=== PATIENT | male | born 1960 | race Hispanic/Latino ===

== ENCOUNTER 2020-11-15 23:11 | Inpatient (IN) | payer BC ==
[2020-11-16 01:42] VITALS: BMI 34.8
[2020-11-16] MEDS ORDERED: Ondansetron PF 4 MG/2 ML Vial IVP PRN (02:34)
[2020-11-16] MEDS ORDERED: Promethazine HCl 12.5 MG in Sodium Chloride 0.9% 50 ML IVPB PRN (02:34)
[2020-11-16] MEDS ORDERED: Labetalol HCl 100 MG/20 ML VIAL SLOW IVP PRN (02:34)
[2020-11-16] MEDS ORDERED: hydrALAZINE 20 MG/ML VIAL SLOW IVP PRN (02:34)
[2020-11-16] MEDS ORDERED: cloNIDine 0.1 MG TAB PO PRN (02:34)
--- NOTE | 2020-11-16 02:44 | PDOC.HHP ---
Hospitalist HPI shortness of breath History of Present Illness: patient is a 60 year old male with PMH HTN, DM who presents as transfer for covid and hypoxia. patient diagnosed with covid on 11/08 and was doing well until today, he developed shortness of breath, in ED satting 88% on RA required 2OL by [place] to make sats over 90, given steroids and antibiotics and transferred here for further workup and care. Allergies/Adverse Reactions: Allergy/AdvReac Type Severity Reaction Status Date / Time No Known Allergies Allergy Unverified 11/16/20 01:31 Home Medications: Medication Instructions Recorded Confirmed Type Aspirin 81 mg PO DAILY 11/16/20 11/16/20 History Atorvastatin Calcium 10 mg PO DAILY 11/16/20 11/16/20 History Lisinopril 10 mg PO DAILY 11/16/20 11/16/20 History metFORMIN [Glucophage] 500 mg PO DAILY 11/16/20 11/16/20 History Past History: PMHx: DM, HTN, HLD PSHx: colonoscopy FHx: reviewed and no significant FH to this care Social: Patient drinks socially rarely Patient denies drug use Patient has no smoking history Lives at home with family. Hospitalist HPI ROS Constitutional: denies: fever, chills, sweats, weakness, malaise, other Eyes: denies: pain, vision change, conjunctivae inflammation, eyelid inflammation, redness, other ENT: denies: ear pain, ear discharge, nose pain, nose discharge, nose conge stion, mouth pain, mouth swelling, throat pain, throat swelling, other Respiratory: reports: shortness of breath. denies: cough, dry, hemoptysis, SOB with excertion, pleuritic pain, sputum, wheezing, other Cardiovascular: denies: chest pain, palpitations, orthopnea, paroxysmal noc. dyspnea, edema, light headedness, other Gastrointestinal: denies: nausea, vomiting, abdominal pain, diarrhea, constipation, melena, hematochezia, other Genitourinary: denies: dysuria, frequency, incontinence, hematuria, retention, other Musculoskeletal: denies: neck pain, shoulder pain, arm pain, back pain, hand pain, leg pain, foot pain, other Skin: denies: rash, lesions, zulma, bruising, other Neurological: denies: weakness, numbness, incoordination, change in speech, confusion, seizures, other All other systems reviewed; all pertinent +/- noted in HPI/Subj Hospitalist Exam Vitals: Vital Signs (12 hours) Temp Pulse Resp Pulse Ox 11/16/20 01:52 95 11/16/20 01:48 95 11/16/20 01:29 97.2 F L 65 18 95 Weight Weight 209 lb 7.04 oz General Appearance: NAD, awake alert Eye: PERRL, anicteric sclera ENT: normocephalic atraumatic, no oropharyngeal lesions, moist mucosa Neck: supple, symmetric, no JVD, no thyromegaly, no lymphadenopathy, no carotid bruit Heart: RRR, no murmur, no gallops, no rubs, normal peripheral pulses Respiratory: CTAB, no wheezes, no rales, no ronchi, normal chest expansion, no tachypnea, normal percussion Gastrointestinal: soft, non-tender, non-distended, normal bowel sounds, no palpable masses, no hepatomegaly, no splenomegaly, no bruit Extremities: no cyanosis, no clubbing, no edema Skin: normal turgor, no lesions, no rashes Neurological: cranial nerve grossly intact, normal sensation to touch, no weakness, no focal deficits, no new deficit Musculoskeletal: normal tone, normal strength, no muscle wasting Psychiatric: normal affect, normal behavior, A&O x 3 Hospitalist Results Lab results: Laboratory Last Values POC Glucose 187 mg/dL (70-100) H 11/16/20 01:34 Additional comment: ED documents from here and kelly reviewed, and labs and imaging reports Hospitalist H&P A/P Plan: patient is a 60 year old male with PMH HTN, DM who presents as transfer for covid and hypoxia. patient diagnosed with covid on 11/08 and was doing well until today, he developed shortness of breath, in ED satting 88% on RA required 2OL by [place] to make sats over 90, given steroids and antibiotics and transferred here for further workup and care. # covid 19 pneumonia # hypoxia - admit to floor - continue on O2, monitor for worsening - antibiotics, vitamins, pepcid, lovenox, steroids # HTN - continue home meds and PRN meds for breakthrough # DM w/ hyperglycemia - steroids playing a role in out of control numbers, continue SSI and hold PO DM meds DVT/GI ppx
[2020-11-16] MEDS ORDERED: Electrolyte Replacement Protocol 1 EACH FS SCH (02:45)
[2020-11-16] MEDS ORDERED: Dextrose 5% in Water 1,000 ML IV PRN (02:48)
[2020-11-16] MEDS ORDERED: Dextrose 50% Abboject 50 ML SYRINGE SLOW IVP PRN (02:48)
[2020-11-16] MEDS: HumaLOG 300 UNITS/3 ML VIAL SC PRN (05:43)
[2020-11-16] MEDS ORDERED: Lisinopril 10 MG TAB PO SCH (09:00)
[2020-11-16] MEDS: Zinc Sulfate 220 MG CAP PO SCH (09:10)
[2020-11-16] MEDS: Atorvastatin Calcium 10 MG TAB PO SCH (09:10)
[2020-11-16] MEDS: Famotidine 20 MG TAB PO SCH ×2 (09:10→20:14)
[2020-11-16] MEDS: Aspirin Chewable 81 MG TAB PO SCH (09:10)
[2020-11-16] MEDS: Ascorbic Acid 500 mg Chewable Tablet PO SCH (09:10)
[2020-11-16] MEDS: Cholecalciferol 1,000 UNITS (25 MCG) TAB PO SCH (09:10)
[2020-11-16] MEDS ORDERED: HumaLOG 300 UNITS/3 ML VIAL SC PRN (12:51)
[2020-11-16] MEDS ORDERED: Albuterol 200 PUFF (6.7GM INHALER) INH PRN (12:54)
[2020-11-16] MEDS ORDERED: REMDESIVIR (EUA) 200 MG in Sodium Chloride 0.9% 250 ML 210 ML IV SCH (15:00)
[2020-11-16] MEDS: Albuterol 200 PUFF (6.7GM INHALER) INH SCH ×3 (17:37→22:30)
--- NOTE | 2020-11-16 20:07 | CON ---
DATE OF CONSULTATION: 11/16/2020 REASON FOR CONSULT: COVID-19. HISTORY OF PRESENT ILLNESS: A 60-year-old, looks like first admission to this hospital who has a history of obesity, type 2 diabetes, hyperlipidemia, hypertension, and has been positive and sick for about 7 days before admission. He initially did well but then 2 days before admission, his saturations dropped to the 80s, so he was brought in. He is currently receiving Decadron, azithromycin, Rocephin, remdesivir. He was sitting by the window, saturating at around 90%, and he is little bit tachypneic at rest, coughing intermittently, typical COVID symptoms. He is oriented follows commands. Sometimes his speech is a little bit halting because of breathlessness. He denies headaches. No shortness of breath. Little bit of loss of sense of smell. No sore throat, odynophagia, or dysphagia. No chest pain. No abdominal pain or diarrhea. No genitourinary symptoms. No joint symptoms. PAST MEDICAL HISTORY: Obesity, diabetes type 2, hypertension. FAMILY HISTORY: Noncontributory. ALLERGIES: NONE. MEDICATIONS: 1. Remdesivir. 2. Decadron. 3. Azithromycin. 4. Rocephin. 5. Some other p.r.n. medications. PHYSICAL EXAMINATION: VITAL SIGNS: The temperature is normal, BP 117/62, heart rate 68, respirations 17, O2 saturation 93% to 96%. He will desaturate easily down to 85 to 87 upon the slightest exercise. When he is lying on his left lateral decubitus, his best sats are around 91 to 92. In the recumbent position, they go up to 95, and in the right lateral decubitus, they go up to 98% to 100%. HEENT: His ocular movements are conjugate. Oral cavity normal. LUNGS: With a few scattered inspiratory crackles up to a third of right and left hemithorax. No wheezing. HEART: S1, S2. Regular rate. No S3 or S4. ABDOMEN: Soft, not distended or tender. No ascites. No bladder distention. No edema. EXTREMITIES: No joint inflammatory activity. Moves all extremities equally. NEUROLOGIC: Cognitive function appears to be intact. LABORATORY DATA: White cell count 11.8, hemoglobin 13, platelets 216 with 90% neutrophils. D-dimer 1.68. Creatinine 1.15, glucose 126. Liver profile normal. SARS-CoV2 was positive on the . ASSESSMENT: Type 2 diabetes, hypertension and moderate to severe SARS-CoV2 pneumonia. Continue remdesivir, Decadron. Discontinue azithromycin and Rocephin. Continue O2 supplementation. He is right now at 5 L/minute and hopefully he will turn around. Measure CRP and D-dimer every other day and basic metabolic panel. Liver functions every other day. Job ID: [id number]
[2020-11-16] MEDS: Enoxaparin Sodium 40 MG/0.4 ML SYRINGE SC SCH (20:14)
[2020-11-16] MEDS: Dexamethasone 4 mg/ml Vial SLOW IVP SCH (20:14)
[2020-11-16] MEDS ORDERED: Enoxaparin Sodium 40 MG/0.4 ML SYRINGE SC SCH (21:00)
[2020-11-16] MEDS ORDERED: Azithromycin 500 MG in Sodium Chloride 0.9% 250 ML 250 ML IVPB SCH (21:00)
[2020-11-16] MEDS ORDERED: cefTRIAXone\\ROCEPHIN 1 GM in Sodium Chloride 0.9% 100 ML IVPB SCH (22:00)
[2020-11-17] MEDS: Albuterol 200 PUFF (6.7GM INHALER) INH SCH ×6 (02:30→22:50)
[2020-11-17 07:51] LABS: ALT (SGPT) 16 U/L (8-55); AST (SGOT) 23 U/L (5-34); Albumin 3.4 g/dL (3.5-5.0); Alkaline Phosphatase 95 U/L (40-110); Anion Gap 13 mmol/L (10-20); BUN (Urea Nitrogen) 23 mg/dL (8.4-25.7); Bilirubin, Direct 0.2 mg/dL (0.1-0.3); Bilirubin, Total 0.5 mg/dL (0.2-1.2); Calc. Creatinine Clearance 114 mL/min (70-130); Calcium 8.9 mg/dL (7.8-10.44); Carbon Dioxide 22 mmol/L (22-29); Chloride 107 mmol/L (98-107); Glucose 166 mg/dL (70-105); Magnesium 2.3 mg/dL (1.6-2.6); Potassium 4.1 mmol/L (3.5-5.1); Protein, Total 6.4 g/dL (6.0-8.3); Sodium 138 mmol/L (136-145)
[2020-11-17 08:05] LABS: Band 4 % (5-11); Hemoglobin 12.4 g/dL (14.0-18.0); Lymphocytes 8 % (21-51); MDiff Complete? YES; Mean Corpuscular HGB CONC 32.8 g/dL (32.0-36.0); Mean Corpuscular Hemoglobin 28.7 pg (27.0-31.0); Mean Corpuscular Volume 87.6 fL (78.0-98.0); Mean Platelet Volume 8.5 fL (7.4-10.4); Monocytes 1 % (0-10); Neutrophil 87 % (42-75); Platelet Count 299 thou/uL (130-400); RBC Distribution Width 11.9 % (11.5-14.5); White Blood Cell (WBC) Count 17.3 thou/uL (4.8-10.8)
[2020-11-17] MEDS: Enoxaparin Sodium 40 MG/0.4 ML SYRINGE SC SCH ×2 (09:08→20:39)
[2020-11-17] MEDS: Multivit, Therapeutic 1 TAB PO SCH (09:08)
[2020-11-17] MEDS: Ascorbic Acid 500 mg Chewable Tablet PO SCH (09:08)
[2020-11-17] MEDS: Atorvastatin Calcium 10 MG TAB PO SCH (09:08)
[2020-11-17] MEDS: Cholecalciferol 1,000 UNITS (25 MCG) TAB PO SCH (09:08)
[2020-11-17] MEDS: Aspirin Chewable 81 MG TAB PO SCH (09:08)
[2020-11-17] MEDS: Zinc Sulfate 220 MG CAP PO SCH (09:08)
[2020-11-17] MEDS: Famotidine 20 MG TAB PO SCH (09:08)
[2020-11-17] MEDS: HumaLOG 300 UNITS/3 ML VIAL SC PRN (12:09)
[2020-11-17] MEDS: REMDESIVIR (EUA) 100 MG in Sodium Chloride 0.9% 250 ML 230 ML IV SCH (17:22)
--- NOTE | 2020-11-17 20:38 | PDOC.HOSPP ---
- Subjective Encounter Date: 11/17/20 Encounter Time: 14:00 Subjective: Patient seen and examined for respiratory failure due to COVID 19 pneumonia. Short of breath on [id number] exertion. Denies any fever or chills. - Objective Vital Signs & Weight: Vital Signs (12 hours) Temp Pulse Resp BP Pulse Ox 11/17/20 20:00 99.4 F 84 20 130/69 95 11/17/20 15:39 98.3 F 68 17 150/70 H 95 11/17/20 11:35 98.6 F 80 16 133/64 97 Weight Weight 209 lb 7.04 oz Result Diagrams: 11/17/20 07:17 11/17/20 07:17 Additional Labs: Accuchecks 11/17/20 11/17/20 11/17/20 15:40 11:37 05:16 POC Glucose 110 H 226 H 158 H 11/16/20 20:29 POC Glucose 209 H Abnormal Lab Results - Last 48 hrs 11/17/20 07:17: Albumin 3.4 L 11/17/20 07:17: WBC 17.3 H, RBC 4.30 L, Hgb 12.4 L, Hct 37.7 L, Neutrophils % (Manual) 87 H, Band Neuts % (Manual) 4 L, Lymphocytes % (Manual) 8 L 11/17/20 07:17: C-Reactive Protein 8.40 H 11/17/20 07:17: Ferritin 923.03 H 11/17/20 07:17: D-Dimer 1.17 H Radiology Reviewed by me: Yes (CTA chest - pneumonia) Hospitalist ROS - Review of Systems Cardiovascular: denies: chest pain, palpitations, orthopnea, paroxysmal noc. dyspnea, edema, light headedness, other Gastrointestinal: denies: nausea, vomiting, abdominal pain, diarrhea, constipation, melena, hematochezia, other - Medication Medications: Active Medications Generic Name Dose Route Start Last Admin Trade Name Freq PRN Reason Stop Dose Admin Albuterol Sulfate 2 puff 11/16/20 14:30 11/17/20 17:22 Albuterol 200 Puff (6.7gm Inhaler) INH 2 puff [id number] SUZANNA Administration Ascorbic Acid 500 mg 11/16/20 09:00 11/17/20 09:08 Ascorbic Acid 500 Mg Chewable Tablet PO 500 mg DAILY SUZANNA Administration Aspirin 81 mg 11/16/20 09:00 11/17/20 09:08 Aspirin Chewable 81 Mg Tab PO 81 mg DAILY SUZANNA Administration Atorvastatin Calcium 10 mg 11/16/20 09:00 11/17/20 09:08 Atorvastatin Calcium 10 Mg Tab PO 10 mg DAILY SUZANNA Administration Cholecalciferol 2,000 units 11/16/20 09:00 11/17/20 09:08 Cholecalciferol 1,000 Units (25 Mcg) Tab PO 2,000 units DAILY SUZANNA Administration Dexamethasone 6 mg 11/16/20 21:00 11/16/20 20:14 Dexamethasone 4 Mg/Ml Vial SLOW IVP 6 mg HS SUZANNA Administration Enoxaparin Sodium 40 mg 11/16/20 21:00 11/17/20 09:08 Enoxaparin Sodium 40 Mg/0.4 Ml Syringe SC 40 mg 0900,2100 SUZANNA Administration Remdesivir 100 mg/ Sodium 250 mls @ 250 mls/hr 11/17/20 16:00 11/17/20 17:22 Chloride IV 11/20/20 16:59 250 mls 1600 SUZANNA Administration Insulin Human Lispro 0 units 11/16/20 02:48 11/17/20 12:09 Humalog 300 Units/3 Ml Vial SC 3 units .MILD SLIDING SCALE PRN Administration Mild Correctional Scale Insulin Human Lispro 0 units 11/16/20 12:51 11/16/20 20:56 Humalog 300 Units/3 Ml Vial SC 2 unit .BEDTIME SLIDING SC PRN Administration Bedtime Correctional Scale Multivitamins 1 tab 11/17/20 09:00 11/17/20 09:08 Multivit, Therapeutic 1 Tab PO 1 tab DAILY SUZANNA Administration Zinc Sulfate 220 mg 11/16/20 09:00 11/17/20 09:08 Zinc Sulfate 220 Mg Cap PO 220 mg DAILY SUZANNA Administration Hospitalist Exam Vitals: Vital Signs (12 hours) Temp Pulse Resp BP Pulse Ox 11/17/20 20:00 99.4 F 84 20 130/69 95 11/17/20 15:39 98.3 F 68 17 150/70 H 95 11/17/20 11:35 98.6 F 80 16 133/64 97 Weight Weight 209 lb 7.04 oz General Appearance: awake alert Neck: supple, no JVD Heart: RRR, no gallops, no rubs, normal peripheral pulses Respiratory: normal chest expansion, rales, rhonchi, tachypneic Gastrointestinal: soft, normal bowel sounds, no guarding, no rigidity Extremities: no cyanosis, no clubbing Neurological: no new deficit Musculoskeletal: generalized weakness Psychiatric: normal affect, A&O x 3 Hosp A/P (1) Acute respiratory failure with hypoxia Code(s): J96.01 - ACUTE RESPIRATORY FAILURE WITH HYPOXIA Status: Acute (2) Pneumonia due to COVID-19 virus Code(s): U07.1 - COVID-19; J12.82 - PNEUMONIA DUE TO CORONAVIRUS DISEASE 2019 Status: Acute (3) Severe sepsis Code(s): A41.9 - SEPSIS, UNSPECIFIED ORGANISM; R65.20 - SEVERE SEPSIS WITHOUT SEPTIC SHOCK Status: Suspected (4) Diabetes mellitus, type II Status: Chronic Qualifiers: Chronic kidney disease stage: stage 2 (mild) (5) Obesity (BMI 30-39.9) Code(s): E66.9 - OBESITY, UNSPECIFIED Status: Chronic (6) Hypertension Code(s): I10 - ESSENTIAL (PRIMARY) HYPERTENSION Status: Chronic - Plan DVT proph w/lovenox, DVT proph w/SCDs Patient is requiring 5 L O2 nasal cannula. Infectious disease input appreciated. Antibiotics discontinued. Will monitor d-dimer and CRP every other day. Continue supportive care. Continue bronchodilators with Remdesivir and Decadron. Continue COVID 19 isolation. Plan discussed with the patient. Continue Lovenox for DVT prophylaxis.
[2020-11-17] MEDS: Dexamethasone 4 mg/ml Vial SLOW IVP SCH (20:40)
[2020-11-17] MEDS: Acetaminophen 325 MG TAB PO PRN (20:42)
[2020-11-18] MEDS: Albuterol 200 PUFF (6.7GM INHALER) INH SCH ×6 (02:25→22:38)
[2020-11-18] MEDS: Ascorbic Acid 500 mg Chewable Tablet PO SCH (09:09)
[2020-11-18] MEDS: Multivit, Therapeutic 1 TAB PO SCH (09:09)
[2020-11-18] MEDS: Aspirin Chewable 81 MG TAB PO SCH (09:09)
[2020-11-18] MEDS: metFORMIN 500 MG TAB PO SCH ×2 (09:09→17:05)
[2020-11-18] MEDS: Zinc Sulfate 220 MG CAP PO SCH (09:10)
[2020-11-18] MEDS: Enoxaparin Sodium 40 MG/0.4 ML SYRINGE SC SCH ×2 (09:10→20:28)
[2020-11-18] MEDS: Cholecalciferol 1,000 UNITS (25 MCG) TAB PO SCH (09:10)
[2020-11-18] MEDS: Atorvastatin Calcium 10 MG TAB PO SCH (09:10)
--- NOTE | 2020-11-18 16:46 | PRG ---
DATE OF SERVICE: 11/18/2020 SUBJECTIVE: He is about the same as when I saw him 2 days ago. He desaturates pretty quickly when he starts to doing things, and then when he rests, he goes up to 98 to 100, particularly on his right lateral decubitus. He is breathing at 26 times a minute. He is at 5 L and saturating anywhere from 93 to 100, depending on the amount of activity. OBJECTIVE: LUNGS: With a few crackles, but not much, they not very intense and kind of sparsely distributed. HEART: S1 and S2, regular rate. ABDOMEN: Soft and not distended. EXTREMITIES: Moves all extremities equally. No edema. NEUROLOGIC: Cognitive function appears to be intact. LABORATORY DATA: We do not have any new labs. The CRP needs to be repeated, I think tomorrow it will be repeated. He is currently on remdesivir and Decadron. ASSESSMENT AND DISCUSSION: Type 2 diabetes, hypertension, obesity, and moderate to severe SARS-CoV-2 pneumonia, on remdesivir and Decadron, this is the 12th day of illness, and he may be making some improvement, but again it is hard to tell with this illness. He is still requiring quite a bit of O2 with low-flow cannula. Job ID: [id number]
[2020-11-18] MEDS: REMDESIVIR (EUA) 100 MG in Sodium Chloride 0.9% 250 ML 230 ML IV SCH (17:04)
[2020-11-18] MEDS: Acetaminophen 325 MG TAB PO PRN (20:26)
[2020-11-18] MEDS: Dexamethasone 4 mg/ml Vial SLOW IVP SCH (20:27)
[2020-11-19] MEDS: Albuterol 200 PUFF (6.7GM INHALER) INH SCH ×6 (02:31→20:41)
[2020-11-19] MEDS: HumaLOG 300 UNITS/3 ML VIAL SC PRN (06:00)
[2020-11-19 06:13] LABS: ALT (SGPT) 15 U/L (8-55); AST (SGOT) 21 U/L (5-34); Albumin 3.2 g/dL (3.5-5.0); Alkaline Phosphatase 91 U/L (40-110); Anion Gap 11 mmol/L (10-20); BUN (Urea Nitrogen) 16 mg/dL (8.4-25.7); Bilirubin, Total 0.7 mg/dL (0.2-1.2); CRP (Inflammatory) 12.85 mg/dL (= or < 0.5); Calc. Creatinine Clearance 116 mL/min (70-130); Calcium 8.9 mg/dL (7.8-10.44); Carbon Dioxide 26 mmol/L (22-29); Chloride 104 mmol/L (98-107); Globulin 3.1 g/dL (2.4-3.5); Glucose 160 mg/dL (70-105); Potassium 4.7 mmol/L (3.5-5.1); Protein, Total 6.3 g/dL (6.0-8.3); Sodium 136 mmol/L (136-145)
[2020-11-19 06:14] LABS: Band 2 % (5-11); Lymphocytes 9 % (21-51); MDiff Complete? YES; Mean Corpuscular HGB CONC 33.3 g/dL (32.0-36.0); Mean Corpuscular Hemoglobin 29.8 pg (27.0-31.0); Mean Corpuscular Volume 89.6 fL (78.0-98.0); Mean Platelet Volume 7.9 fL (7.4-10.4); Monocytes 5 % (0-10); Myelocyte 2 % (0-0); Neutrophil 81 % (42-75); Platelet Count 301 thou/uL (130-400); RBC Distribution Width 12.1 % (11.5-14.5); Reactive Lymphocytes 1 % (0-10); Red Blood Cell (RBC) Count 4.02 mill/uL (4.70-6.10); White Blood Cell (WBC) Count 11.8 thou/uL (4.8-10.8)
[2020-11-19] MEDS: Enoxaparin Sodium 40 MG/0.4 ML SYRINGE SC SCH ×2 (07:59→20:39)
[2020-11-19] MEDS: metFORMIN 500 MG TAB PO SCH ×2 (08:00→16:10)
[2020-11-19] MEDS: Aspirin Chewable 81 MG TAB PO SCH (08:00)
[2020-11-19] MEDS: Guaifenesin DM 100-10/5 ML UDCUP PO PRN (08:00)
[2020-11-19] MEDS: Zinc Sulfate 220 MG CAP PO SCH (08:00)
[2020-11-19] MEDS: Cholecalciferol 1,000 UNITS (25 MCG) TAB PO SCH (08:00)
[2020-11-19] MEDS: Ascorbic Acid 500 mg Chewable Tablet PO SCH (08:00)
[2020-11-19] MEDS: Multivit, Therapeutic 1 TAB PO SCH (08:00)
[2020-11-19] MEDS: Atorvastatin Calcium 10 MG TAB PO SCH (08:00)
--- NOTE | 2020-11-19 11:18 | PDOC.HOSPP ---
- Subjective Encounter Date: 11/18/20 Encounter Time: 12:30 Subjective: Patient seen and examined for respiratory failure. Remains on 5 L nasal cannula. No significant change in shortness of breath. Denies any other complaints. - Objective Vital Signs & Weight: Vital Signs (12 hours) Temp Pulse Resp BP Pulse Ox 11/19/20 08:00 98.4 F 82 18 116/66 95 Weight Weight 209 lb 7.04 oz Result Diagrams: 11/19/20 05:26 11/19/20 05:26 Additional Labs: Accuchecks 11/19/20 11/18/20 11/18/20 05:30 20:19 16:23 POC Glucose 152 H 146 H 90 11/18/20 11:29 POC Glucose 115 H Radiology Reviewed by me: Yes (Chest x-raypneumonia) Hospitalist ROS - Review of Systems Cardiovascular: denies: chest pain, palpitations, orthopnea, paroxysmal noc. dyspnea, edema, light headedness, other Gastrointestinal: denies: nausea, vomiting, abdominal pain, diarrhea, constipation, melena, hematochezia, other - Medication Medications: Active Medications Generic Name Dose Route Start Last Admin Trade Name Freq PRN Reason Stop Dose Admin Acetaminophen 650 mg 11/16/20 02:34 11/18/20 20:26 Acetaminophen 325 Mg Tab PO 650 mg Q4H PRN Administration Headache/Fever/Mild Pain (1-3) Albuterol Sulfate 2 puff 11/16/20 14:30 11/19/20 10:07 Albuterol 200 Puff (6.7gm Inhaler) INH 2 puff [id number] SUZANNA Administration Ascorbic Acid 500 mg 11/16/20 09:00 11/19/20 08:00 Ascorbic Acid 500 Mg Chewable Tablet PO 500 mg DAILY SUZANNA Administration Aspirin 81 mg 11/16/20 09:00 11/19/20 08:00 Aspirin Chewable 81 Mg Tab PO 81 mg DAILY SUZANNA Administration Atorvastatin Calcium 10 mg 11/16/20 09:00 11/19/20 08:00 Atorvastatin Calcium 10 Mg Tab PO 10 mg DAILY SUZANNA Administration Cholecalciferol 2,000 units 11/16/20 09:00 11/19/20 08:00 Cholecalciferol 1,000 Units (25 Mcg) Tab PO 2,000 units DAILY SUZANNA Administration Dexamethasone 6 mg 11/16/20 21:00 11/18/20 20:27 Dexamethasone 4 Mg/Ml Vial SLOW IVP 6 mg HS SUZANNA Administration Enoxaparin Sodium 40 mg 11/16/20 21:00 11/19/20 07:59 Enoxaparin Sodium 40 Mg/0.4 Ml Syringe SC 40 mg 0900,2100 SUZANNA Administration Guaifenesin/Dextromethorphan 15 ml 11/16/20 02:34 11/19/20 08:00 Guaifenesin Dm 100-10/5 Ml Udcup PO 15 ml Q4H PRN Administration Cough Remdesivir 100 mg/ Sodium 250 mls @ 250 mls/hr 11/17/20 16:00 11/18/20 17:04 Chloride IV 11/20/20 16:59 250 mls 1600 SUZANNA Administration Insulin Human Lispro 0 units 11/16/20 02:48 11/19/20 06:00 Humalog 300 Units/3 Ml Vial SC 2 units .MILD SLIDING SCALE PRN Administration Mild Correctional Scale Insulin Human Lispro 0 units 11/16/20 12:51 11/16/20 20:56 Humalog 300 Units/3 Ml Vial SC 2 unit .BEDTIME SLIDING SC PRN Administration Bedtime Correctional Scale Metformin HCl 500 mg 11/18/20 08:00 11/19/20 08:00 Metformin 500 Mg Tab PO 500 mg BID-WM SUZANNA Administration Multivitamins 1 tab 11/17/20 09:00 11/19/20 08:00 Multivit, Therapeutic 1 Tab PO 1 tab DAILY SUZANNA Administration Pantoprazole Sodium 40 mg 11/17/20 21:00 11/18/20 20:26 Pantoprazole 40 Mg Tab PO 40 mg HS SUZANNA Administration Zinc Sulfate 220 mg 11/16/20 09:00 11/19/20 08:00 Zinc Sulfate 220 Mg Cap PO 220 mg DAILY SUZANNA Administration Hospitalist Exam Vitals: Vital Signs (12 hours) Temp Pulse Resp BP Pulse Ox 11/19/20 08:00 98.4 F 82 18 116/66 95 Weight Weight 209 lb 7.04 oz General Appearance: awake alert, ill appearing Neck: supple, no JVD Heart: no gallops, no rubs Respiratory: rales, rhonchi Gastrointestinal: soft, non-distended, normal bowel sounds Extremities: no cyanosis Neurological: no new deficit Hosp A/P (1) Acute respiratory failure with hypoxia Code(s): J96.01 - ACUTE RESPIRATORY FAILURE WITH HYPOXIA Status: Acute (2) Pneumonia due to COVID-19 virus Code(s): U07.1 - COVID-19; J12.82 - PNEUMONIA DUE TO CORONAVIRUS DISEASE 2018 Status: Acute (3) Severe sepsis Code(s): A41.9 - SEPSIS, UNSPECIFIED ORGANISM; R65.20 - SEVERE SEPSIS WITHOUT SEPTIC SHOCK Status: Suspected (4) Diabetes mellitus, type II Status: Chronic Qualifiers: Chronic kidney disease stage: stage 2 (mild) (5) Obesity (BMI 30-39.9) Code(s): E66.9 - OBESITY, UNSPECIFIED Status: Chronic (6) Hypertension Code(s): I10 - ESSENTIAL (PRIMARY) HYPERTENSION Status: Chronic - Plan DVT proph w/lovenox, DVT proph w/SCDs Continue O2 supplementation. Recheck CRP and D-dimer in a.m. Continue remdesi vir with Decadron. Continue bronchodilators. Wean O2 as tolerated. Continue Metformin with sliding scale. 11/17 Patient is requiring 5 L O2 nasal cannula. Infectious disease input appreciated. Antibiotics discontinued. Will monitor d-dimer and CRP every other day. Continue supportive care. Continue bronchodilators with Remdesivir and Decadron. Continue COVID 19 isolation. Plan discussed with the patient. Continue Lovenox for DVT prophylaxis.
[2020-11-19] MEDS: REMDESIVIR (EUA) 100 MG in Sodium Chloride 0.9% 250 ML 230 ML IV SCH (16:10)
[2020-11-19] MEDS: Dexamethasone 4 mg/ml Vial SLOW IVP SCH (20:38)
[2020-11-19] MEDS: Acetaminophen 325 MG TAB PO PRN (20:40)
--- NOTE | 2020-11-19 23:08 | PDOC.HOSPP ---
- Subjective Encounter Date: 11/19/20 Encounter Time: 16:00 Subjective: Patient seen and examined for pneumonia/respiratory failure. No significant change in shortness of breath. Denies any fever or chills - Objective Vital Signs & Weight: Vital Signs (12 hours) Temp Pulse Resp BP Pulse Ox 11/19/20 21:26 99.4 F 85 20 135/70 97 Weight Weight 209 lb 7.04 oz Result Diagrams: 11/19/20 05:26 11/19/20 05:26 Additional Labs: Accuchecks 11/19/20 11/19/20 11/19/20 20:36 11:53 05:30 POC Glucose 198 H 102 H 152 H Abnormal Lab Results - Last 48 hrs 11/19/20 05:26: C-Reactive Protein 12.85 H, Albumin 3.2 L, Albumin/Globulin Ratio 1.0 L 11/19/20 05:26: WBC 11.8 H, RBC 4.02 L, Hgb 12.0 L, Hct 36.0 L, Neutrophils % (Manual) 81 H, Band Neuts % (Manual) 2 L, Lymphocytes % (Manual) 9 L, Myelocytes % 2 H 11/19/20 05:26: D-Dimer 0.80 H Hospitalist ROS - Review of Systems Cardiovascular: denies: chest pain, palpitations, orthopnea, paroxysmal noc. dyspnea, edema, light headedness, other Gastrointestinal: denies: nausea, vomiting, abdominal pain, diarrhea, constipation, melena, hematochezia, other - Medication Medications: Active Medications Generic Name Dose Route Start Last Admin Trade Name Freq PRN Reason Stop Dose Admin Acetaminophen 650 mg 11/16/20 02:34 11/19/20 20:40 Acetaminophen 325 Mg Tab PO 650 mg Q4H PRN Administration Headache/Fever/Mild Pain (1-3) Albuterol Sulfate 2 puff 11/16/20 14:30 11/19/20 20:41 Albuterol 200 Puff (6.7gm Inhaler) INH 2 puff [id number] SUZANNA Administration Ascorbic Acid 500 mg 11/16/20 09:00 11/19/20 08:00 Ascorbic Acid 500 Mg Chewable Tablet PO 500 mg DAILY SUZANNA Administration Aspirin 81 mg 11/16/20 09:00 11/19/20 08:00 Aspirin Chewable 81 Mg Tab PO 81 mg DAILY SUZANNA Administration Atorvastatin Calcium 10 mg 11/16/20 09:00 11/19/20 08:00 Atorvastatin Calcium 10 Mg Tab PO 10 mg DAILY SUZANNA Administration Cholecalciferol 2,000 units 11/16/20 09:00 11/19/20 08:00 Cholecalciferol 1,000 Units (25 Mcg) Tab PO 2,000 units DAILY SUZANNA Administration Dexamethasone 6 mg 11/16/20 21:00 11/19/20 20:38 Dexamethasone 4 Mg/Ml Vial SLOW IVP 6 mg HS SUZANNA Administration Enoxaparin Sodium 40 mg 11/16/20 21:00 11/19/20 20:39 Enoxaparin Sodium 40 Mg/0.4 Ml Syringe SC 40 mg 0900,2100 SUZANNA Administration Guaifenesin/Dextromethorphan 15 ml 11/16/20 02:34 11/19/20 08:00 Guaifenesin Dm 100-10/5 Ml Udcup PO 15 ml Q4H PRN Administration Cough Remdesivir 100 mg/ Sodium 250 mls @ 250 mls/hr 11/17/20 16:00 11/19/20 16:10 Chloride IV 11/20/20 16:59 250 mls 1600 SUZANNA Administration Insulin Human Lispro 0 units 11/16/20 02:48 11/19/20 06:00 Humalog 300 Units/3 Ml Vial SC 2 units .MILD SLIDING SCALE PRN Administration Mild Correctional Scale Insulin Human Lispro 0 units 11/16/20 12:51 11/16/20 20:56 Humalog 300 Units/3 Ml Vial SC 2 unit .BEDTIME SLIDING SC PRN Administration Bedtime Correctional Scale Metformin HCl 500 mg 11/18/20 08:00 11/19/20 16:10 Metformin 500 Mg Tab PO 500 mg BID-WM SUZANNA Administration Multivitamins 1 tab 11/17/20 09:00 11/19/20 08:00 Multivit, Therapeutic 1 Tab PO 1 tab DAILY SUZANNA Administration Pantoprazole Sodium 40 mg 11/17/20 21:00 11/19/20 20:38 Pantoprazole 40 Mg Tab PO 40 mg HS SUZANNA Administration Zinc Sulfate 220 mg 11/16/20 09:00 11/19/20 08:00 Zinc Sulfate 220 Mg Cap PO 220 mg DAILY SUZANNA Administration Hospitalist Exam Vitals: Vital Signs (12 hours) Temp Pulse Resp BP Pulse Ox 11/19/20 21:26 99.4 F 85 20 135/70 97 Weight Weight 209 lb 7.04 oz General Appearance: NAD Neck: supple, no JVD Heart: RRR, no gallops Respiratory: rales, rhonchi, tachypneic Gastrointestinal: soft, non-distended, normal bowel sounds Extremities: no cyanosis Neurological: no new deficit Musculoskeletal: generalized weakness Psychiatric: A&O x 3 Hosp A/P (1) Acute respiratory failure with hypoxia Code(s): J96.01 - ACUTE RESPIRATORY FAILURE WITH HYPOXIA Status: Acute (2) Pneumonia due to COVID-19 virus Code(s): U07.1 - COVID-19; J12.82 - PNEUMONIA DUE TO CORONAVIRUS DISEASE 2018 Status: Acute (3) Severe sepsis Code(s): A41.9 - SEPSIS, UNSPECIFIED ORGANISM; R65.20 - SEVERE SEPSIS WITHOUT SEPTIC SHOCK Status: Suspected (4) Diabetes mellitus, type II Status: Chronic Qualifiers: Chronic kidney disease stage: stage 2 (mild) (5) Obesity (BMI 30-39.9) Code(s): E66.9 - OBESITY, UNSPECIFIED Status: Chronic (6) Hypertension Code(s): I10 - ESSENTIAL (PRIMARY) HYPERTENSION Status: Chronic - Plan Remains on 5 L nasal cannula. Continue Remdesivirday 4. Continue bro nchodilators. Continue Lovenox along with dexamethasone, metformin and other medications as above. Continue sliding-scale. Monitor inflammatory markers. 11/18 Continue O2 supplementation. Recheck CRP and D-dimer in a.m. Continue remdesivir with Decadron. Continue bronchodilators. Wean O2 as tolerated. Continue Metformin with sliding scale. 11/17 Patient is requiring 5 L O2 nasal cannula. Infectious disease input appreciated. Antibiotics discontinued. Will monitor d-dimer and CRP every other day. Continue supportive care. Continue bronchodilators with Remdesivir and Decadron. Continue COVID 19 isolation. Plan discussed with the patient. Continue Lovenox for DVT prophylaxis.
[2020-11-20 07:25] LABS: ALT (SGPT) 21 U/L (8-55); AST (SGOT) 31 U/L (5-34); Albumin 3.2 g/dL (3.5-5.0); Alkaline Phosphatase 90 U/L (40-110); Anion Gap 15 mmol/L (10-20); BUN (Urea Nitrogen) 16 mg/dL (8.4-25.7); Bilirubin, Total 0.8 mg/dL (0.2-1.2); Calc. Creatinine Clearance 134 mL/min (70-130); Calcium 8.8 mg/dL (7.8-10.44); Carbon Dioxide 21 mmol/L (22-29); Chloride 103 mmol/L (98-107); Glucose 111 mg/dL (70-105); Potassium 4.4 mmol/L (3.5-5.1); Protein, Total 6.2 g/dL (6.0-8.3); Sodium 135 mmol/L (136-145)
[2020-11-20] MEDS: Enoxaparin Sodium 40 MG/0.4 ML SYRINGE SC SCH ×2 (08:25→20:23)
[2020-11-20] MEDS: Albuterol 200 PUFF (6.7GM INHALER) INH SCH ×6 (08:25→22:30)
[2020-11-20] MEDS: Zinc Sulfate 220 MG CAP PO SCH (08:25)
[2020-11-20] MEDS: Cholecalciferol 1,000 UNITS (25 MCG) TAB PO SCH (08:26)
[2020-11-20] MEDS: Atorvastatin Calcium 10 MG TAB PO SCH (08:26)
[2020-11-20] MEDS: Ascorbic Acid 500 mg Chewable Tablet PO SCH (08:26)
[2020-11-20] MEDS: Aspirin Chewable 81 MG TAB PO SCH (08:26)
[2020-11-20] MEDS: Multivit, Therapeutic 1 TAB PO SCH (08:26)
[2020-11-20] MEDS: metFORMIN 500 MG TAB PO SCH ×2 (08:26→17:05)
[2020-11-20] MEDS: Guaifenesin DM 100-10/5 ML UDCUP PO PRN ×2 (08:37→20:22)
[2020-11-20 09:31] LABS: Band 1 % (5-11); Eosinophils 1 % (0-10); Hemoglobin 12.1 g/dL (14.0-18.0); Lymphocytes 9 % (21-51); MDiff Complete? YES; Mean Corpuscular HGB CONC 32.7 g/dL (32.0-36.0); Mean Corpuscular Hemoglobin 28.9 pg (27.0-31.0); Mean Corpuscular Volume 88.4 fL (78.0-98.0); Mean Platelet Volume 8.3 fL (7.4-10.4); Metamyelocyte 2 % (0-0); Monocytes 6 % (0-10); Neutrophil 79 % (42-75); Platelet Count 339 thou/uL (130-400); RBC Distribution Width 12.3 % (11.5-14.5); RBC Morphology Normal; Reactive Lymphocytes 2 % (0-10); Red Blood Cell (RBC) Count 4.17 mill/uL (4.70-6.10); White Blood Cell (WBC) Count 13.9 thou/uL (4.8-10.8)
[2020-11-20] MEDS: REMDESIVIR (EUA) 100 MG in Sodium Chloride 0.9% 250 ML 230 ML IV SCH (17:04)
[2020-11-20] MEDS: Dexamethasone 4 mg/ml Vial SLOW IVP SCH (20:23)
--- NOTE | 2020-11-20 22:53 | PDOC.HOSPP ---
- Subjective Encounter Date: 11/20/20 Encounter Time: 14:00 Subjective: Patient seen and examined for COVID 19 pneumonia/respiratory failure. Denies any new complaints. Mild dry cough. - Objective Vital Signs & Weight: Vital Signs (12 hours) Temp Pulse Resp BP BP Pulse Ox 11/20/20 20:00 98.6 F 86 18 117/65 93 L 11/20/20 18:56 99.3 F 97 20 125/77 90 L 11/20/20 11:10 99.2 F 102 H 20 111/68 97 Weight Weight 209 lb 7.04 oz Result Diagrams: 11/20/20 05:48 11/20/20 05:48 Additional Labs: Accuchecks 11/20/20 11/20/20 11/20/20 17:06 11:10 05:11 POC Glucose 103 H 97 115 H 11/19/20 16:59 POC Glucose 125 H Abnormal Lab Results - Last 48 hrs 11/19/20 05:26: C-Reactive Protein 12.85 H, Albumin 3.2 L, Albumin/Globulin Ratio 1.0 L 11/19/20 05:26: WBC 11.8 H, RBC 4.02 L, Hgb 12.0 L, Hct 36.0 L, Neutrophils % (Manual) 81 H, Band Neuts % (Manual) 2 L, Lymphocytes % (Manual) 9 L, Myelocytes % 2 H 11/19/20 05:26: D-Dimer 0.80 H 11/20/20 05:48: Sodium 135 L, Carbon Dioxide 21 L, Albumin 3.2 L, Albumin/Globulin Ratio 1.1 L 11/20/20 05:48: WBC 13.9 H, RBC 4.17 L, Hgb 12.1 L, Hct 36.9 L, Neutrophils % (Manual) 79 H, Band Neuts % (Manual) 1 L, Lymphocytes % (Manual) 9 L Hospitalist ROS - Review of Systems Cardiovascular: denies: chest pain, palpitations, orthopnea, paroxysmal noc. dyspnea, edema, light headedness, other Gastrointestinal: denies: nausea, vomiting, abdominal pain, diarrhea, constipation, melena, hematochezia, other - Medication Medications: Active Medications Generic Name Dose Route Start Last Admin Trade Name Freq PRN Reason Stop Dose Admin Acetaminophen 650 mg 11/16/20 02:34 11/19/20 20:40 Acetaminophen 325 Mg Tab PO 650 mg Q4H PRN Administration Headache/Fever/Mild Pain (1-3) Albuterol Sulfate 2 puff 11/16/20 14:30 11/20/20 22:30 Albuterol 200 Puff (6.7gm Inhaler) INH 2 puff [id number] SUZANNA Administration Ascorbic Acid 500 mg 11/16/20 09:00 11/20/20 08:26 Ascorbic Acid 500 Mg Chewable Tablet PO 500 mg DAILY SUZANNA Administration Aspirin 81 mg 11/16/20 09:00 11/20/20 08:26 Aspirin Chewable 81 Mg Tab PO 81 mg DAILY SUZANNA Administration Atorvastatin Calcium 10 mg 11/16/20 09:00 11/20/20 08:26 Atorvastatin Calcium 10 Mg Tab PO 10 mg DAILY SUZANNA Administration Cholecalciferol 2,000 units 11/16/20 09:00 11/20/20 08:26 Cholecalciferol 1,000 Units (25 Mcg) Tab PO 2,000 units DAILY SUZANNA Administration Dexamethasone 6 mg 11/16/20 21:00 11/20/20 20:23 Dexamethasone 4 Mg/Ml Vial SLOW IVP 6 mg HS SUZANNA Administration Enoxaparin Sodium 40 mg 11/16/20 21:00 11/20/20 20:23 Enoxaparin Sodium 40 Mg/0.4 Ml Syringe SC 40 mg 0900,2100 SUZANNA Administration Guaifenesin/Dextromethorphan 15 ml 11/16/20 02:34 11/20/20 20:22 Guaifenesin Dm 100-10/5 Ml Udcup PO 15 ml Q4H PRN Administration Cough Insulin Human Lispro 0 units 11/16/20 02:48 11/19/20 06:00 Humalog 300 Units/3 Ml Vial SC 2 units .MILD SLIDING SCALE PRN Administration Mild Correctional Scale Insulin Human Lispro 0 units 11/16/20 12:51 11/16/20 20:56 Humalog 300 Units/3 Ml Vial SC 2 unit .BEDTIME SLIDING SC PRN Administration Bedtime Correctional Scale Metformin HCl 500 mg 11/18/20 08:00 11/20/20 17:05 Metformin 500 Mg Tab PO 500 mg BID-WM SUZANNA Administration Multivitamins 1 tab 11/17/20 09:00 11/20/20 08:26 Multivit, Therapeutic 1 Tab PO 1 tab DAILY SUZANNA Administration Pantoprazole Sodium 40 mg 11/17/20 21:00 11/20/20 20:22 Pantoprazole 40 Mg Tab PO 40 mg HS SUZANNA Administration Zinc Sulfate 220 mg 11/16/20 09:00 11/20/20 08:25 Zinc Sulfate 220 Mg Cap PO 220 mg DAILY SUZANNA Administration Hospitalist Exam Vitals: Vital Signs (12 hours) Temp Pulse Resp BP BP Pulse Ox 11/20/20 20:00 98.6 F 86 18 117/65 93 L 11/20/20 18:56 99.3 F 97 20 125/77 90 L 11/20/20 11:10 99.2 F 102 H 20 111/68 97 Weight Weight 209 lb 7.04 oz General Appearance: NAD Neck: supple, no JVD Heart: RRR, no gallops Respiratory: no wheezes, rales, rhonchi Gastrointestinal: soft, normal bowel sounds, no guarding, no rigidity Extremities: no cyanosis Musculoskeletal: generalized weakness Hosp A/P (1) Acute respiratory failure with hypoxia Code(s): J96.01 - ACUTE RESPIRATORY FAILURE WITH HYPOXIA Status: Acute (2) Pneumonia due to COVID-19 virus Code(s): U07.1 - COVID-19; J12.82 - PNEUMONIA DUE TO CORONAVIRUS DISEASE 2019 Status: Acute (3) Severe sepsis Code(s): A41.9 - SEPSIS, UNSPECIFIED ORGANISM; R65.20 - SEVERE SEPSIS WITHOUT SEPTIC SHOCK Status: Suspected (4) Diabetes mellitus, type II Status: Chronic Qualifiers: Chronic kidney disease stage: stage 2 (mild) (5) Obesity (BMI 30-39.9) Code(s): E66.9 - OBESITY, UNSPECIFIED Status: Chronic (6) Hypertension Code(s): I10 - ESSENTIAL (PRIMARY) HYPERTENSION Status: Chronic - Plan DVT proph w/lovenox, DVT proph w/SCDs Wean O2 as tolerated. Check inflammatory markers in a.m. Last dose of Remdesivir today. Continue bronchodilators, metformin, sliding scale as well as Lovenox. Continue PPIs and other medications as above. DC planning once on 2 L oxygen nasal cannula. 2/2 Remains on 5 L nasal cannula. Continue Remdesivirday 4. Continue bronchodilators. Continue Lovenox along with dexamethasone, metformin and other medications as above. Continue sliding-scale. Monitor inflammatory markers. 2/ Continue O2 supplementation. Recheck CRP and D-dimer in a.m. Continue remdesivir with Decadron. Continue bronchodilators. Wean O2 as tolerated. Continue Metformin with sliding scale. 11/17 Patient is requiring 5 L O2 nasal cannula. Infectious disease input appreciated. Antibiotics discontinued. Will monitor d-dimer and CRP every other day. Continue supportive care. Continue bronchodilators with Remdesivir and Decadron. Continue COVID 19 isolation. Plan discussed with the patient. Continue Lovenox for DVT prophylaxis.
[2020-11-21] MEDS: Albuterol 200 PUFF (6.7GM INHALER) INH SCH ×6 (03:10→23:24)
[2020-11-21] MEDS: HumaLOG 300 UNITS/3 ML VIAL SC PRN ×2 (05:31→11:51)
[2020-11-21 06:43] LABS: #Basophils 0.1 thou/uL (0.0-0.2); #Eosinphils 0.1 thou/uL (0.0-0.7); #Lymphocytes 0.5 thou/uL (1.20-3.40); #Monocytes 0.3 thou/uL (0.11-0.59); #Neutrophils 9.2 thou/uL (1.40-6.50); %Basophils 0.7 % (0.0-1.0); %Eosinophils 0.9 % (0.0-10.0); %Lymphocytes 5.1 % (21.0-51.0); %Monocytes 2.6 % (0.0-10.0); %Neutrophils 90.5 % (42.0-75.0); Hemoglobin 12.4 g/dL (14.0-18.0); Mean Corpuscular HGB CONC 33.1 g/dL (32.0-36.0); Mean Corpuscular Hemoglobin 29.7 pg (27.0-31.0); Mean Corpuscular Volume 89.9 fL (78.0-98.0); Mean Platelet Volume 7.7 fL (7.4-10.4); Platelet Count 392 thou/uL (130-400); RBC Distribution Width 12.2 % (11.5-14.5); Red Blood Cell (RBC) Count 4.19 mill/uL (4.70-6.10); White Blood Cell (WBC) Count 10.2 thou/uL (4.8-10.8)
[2020-11-21 07:13] LABS: ALT (SGPT) 17 U/L (8-55); AST (SGOT) 20 U/L (5-34); Albumin 3.2 g/dL (3.5-5.0); Alkaline Phosphatase 90 U/L (40-110); Anion Gap 14 mmol/L (10-20); BUN (Urea Nitrogen) 21 mg/dL (8.4-25.7); Bilirubin, Total 0.8 mg/dL (0.2-1.2); Calc. Creatinine Clearance 110 mL/min (70-130); Carbon Dioxide 24 mmol/L (22-29); Chloride 101 mmol/L (98-107); Globulin 3.3 g/dL (2.4-3.5); Glucose 180 mg/dL (70-105); Protein, Total 6.5 g/dL (6.0-8.3); Sodium 134 mmol/L (136-145)
[2020-11-21] MEDS: Multivit, Therapeutic 1 TAB PO SCH (08:31)
[2020-11-21] MEDS: Enoxaparin Sodium 40 MG/0.4 ML SYRINGE SC SCH ×2 (08:31→21:24)
[2020-11-21] MEDS: Cholecalciferol 1,000 UNITS (25 MCG) TAB PO SCH (08:31)
[2020-11-21] MEDS: Zinc Sulfate 220 MG CAP PO SCH (08:31)
[2020-11-21] MEDS: Atorvastatin Calcium 10 MG TAB PO SCH (08:31)
[2020-11-21] MEDS: metFORMIN 500 MG TAB PO SCH ×2 (08:31→16:37)
[2020-11-21] MEDS: Ascorbic Acid 500 mg Chewable Tablet PO SCH (08:31)
[2020-11-21] MEDS: Aspirin Chewable 81 MG TAB PO SCH (08:31)
[2020-11-21] MEDS: Guaifenesin DM 100-10/5 ML UDCUP PO PRN ×2 (11:11→18:17)
--- NOTE | 2020-11-21 15:38 | PRG ---
DATE OF SERVICE: 11/21/2020 SUBJECTIVE: Mr. Alcaraz has experienced a decrease in requirements for O2 supplementation and was counting on being discharged to maybe tomorrow. He still desaturates quite a bit on effort. When I tried him, he went up to [address] to 83 after a brief effort. It slowly went back to 90 after a while. This is on 3.5 L nasal cannula O2 supplementation. OBJECTIVE: LUNGS: With still scattered inspiratory crackles, but not as prominent as before. No wheezing. HEART: S1, S2. Regular rate. ABDOMEN: Soft, not distended or tender. No ascites. No bladder distention. EXTREMITIES: Moves all extremities equally. LABORATORY DATA: White cell count is down to 10.2, hemoglobin 12.4, platelets 392. D-dimer is down to 0.71, but the C-reactive protein is up for some reason from 8 to 15. Ferritin is down from 900 to 489. I have not seen x-ray done since he was admitted. ASSESSMENT AND DISCUSSION: 1. Type 2 diabetes. 2. Hypertension. 3. Obesity. 4. [id number] SARs-CoV-2 pneumonia. He finished remdesivir and is still on Decadron. He seems to be improving. This is the 15th day of illness. increase in CRP, but overall his O2 requirements are down. Still quite marginal oxygenation after exercise, so I do not think he is ready for discharge planning just yet and we need to see the CRP trending down before he goes anywhere. Job ID: [id number] MTDD
[2020-11-21] MEDS ORDERED: Cepastat Lozenges 1 LOZ PO PRN (17:39)
[2020-11-21] MEDS ORDERED: Sodium Chloride 0.65% Nasal 44 ML BOT EA NARE PRN (17:39)
[2020-11-21] MEDS: Dexamethasone 4 mg/ml Vial SLOW IVP SCH (21:24)
[2020-11-21] MEDS: Loratadine 10 MG TAB PO SCH (21:25)
--- NOTE | 2020-11-21 23:35 | PDOC.HOSPP ---
- Subjective Encounter Date: 11/21/20 Encounter Time: 17:00 Subjective: Patient evaluated for COVID 19 pneumonia. Shortness of breath slightly better. Denies any new complaints. - Objective Vital Signs & Weight: Vital Signs (12 hours) Temp Pulse Resp BP Pulse Ox 11/21/20 20:00 98.3 F 84 18 117/68 91 L 11/21/20 16:25 98.2 F 77 18 108/64 94 L Weight Weight 209 lb 7.04 oz Result Diagrams: 11/21/20 06:30 11/21/20 06:30 Additional Labs: Accuchecks 11/21/20 11/21/20 11/21/20 20:06 11:28 04:20 POC Glucose 147 H 169 H 175 H 11/20/20 20:50 POC Glucose 169 H Abnormal Lab Results - Last 48 hrs 11/20/20 05:48: Sodium 135 L, Carbon Dioxide 21 L, Albumin 3.2 L, Albumin/Globulin Ratio 1.1 L 11/20/20 05:48: WBC 13.9 H, RBC 4.17 L, Hgb 12.1 L, Hct 36.9 L, Neutrophils % (Manual) 79 H, Band Neuts % (Manual) 1 L, Lymphocytes % (Manual) 9 L 11/21/20 06:30: Sodium 134 L, Albumin 3.2 L, Albumin/Globulin Ratio 1.0 L 11/21/20 06:30: RBC 4.19 L, Hgb 12.4 L, Hct 37.6 L, Neutrophils % 90.5 H, Lymphocytes % 5.1 L, Neutrophils # 9.2 H, Lymphocytes # 0.5 L 11/21/20 06:30: C-Reactive Protein 15.45 H 11/21/20 06:30: Ferritin 489.37 H 11/21/20 06:30: D-Dimer 0.71 H Hospitalist ROS - Review of Systems Cardiovascular: denies: chest pain, palpitations, orthopnea, paroxysmal noc. dyspnea, edema, light headedness, other Gastrointestinal: denies: nausea, vomiting, abdominal pain, diarrhea, constipation, melena, hematochezia, other - Medication Medications: Active Medications Generic Name Dose Route Start Last Admin Trade Name Freq PRN Reason Stop Dose Admin Acetaminophen 650 mg 11/16/20 02:34 11/19/20 20:40 Acetaminophen 325 Mg Tab PO 650 mg Q4H PRN Administration Headache/Fever/Mild Pain (1-3) Albuterol Sulfate 2 puff 11/16/20 14:30 11/21/20 23:24 Albuterol 200 Puff (6.7gm Inhaler) INH 2 puff [id number] SUZANNA Administration Ascorbic Acid 500 mg 11/16/20 09:00 11/21/20 08:31 Ascorbic Acid 500 Mg Chewable Tablet PO 500 mg DAILY SUZANNA Administration Aspirin 81 mg 11/16/20 09:00 11/21/20 08:31 Aspirin Chewable 81 Mg Tab PO 81 mg DAILY SUZANNA Administration Atorvastatin Calcium 10 mg 11/16/20 09:00 11/21/20 08:31 Atorvastatin Calcium 10 Mg Tab PO 10 mg DAILY SUZANNA Administration Cholecalciferol 2,000 units 11/16/20 09:00 11/21/20 08:31 Cholecalciferol 1,000 Units (25 Mcg) Tab PO 2,000 units DAILY SUZANNA Administration Dexamethasone 6 mg 11/16/20 21:00 11/21/20 21:24 Dexamethasone 4 Mg/Ml Vial SLOW IVP 6 mg HS SUZANNA Administration Enoxaparin Sodium 40 mg 11/16/20 21:00 11/21/20 21:24 Enoxaparin Sodium 40 Mg/0.4 Ml Syringe SC 40 mg 0900,2100 SUZANNA Administration Guaifenesin/Dextromethorphan 15 ml 11/16/20 02:34 11/21/20 18:17 Guaifenesin Dm 100-10/5 Ml Udcup PO 15 ml Q4H PRN Administration Cough Insulin Human Lispro 0 units 11/16/20 02:48 11/21/20 11:51 Humalog 300 Units/3 Ml Vial SC 2 units .MILD SLIDING SCALE PRN Administration Mild Correctional Scale Insulin Human Lispro 0 units 11/16/20 12:51 11/16/20 20:56 Humalog 300 Units/3 Ml Vial SC 2 unit .BEDTIME SLIDING SC PRN Administration Bedtime Correctional Scale Loratadine 10 mg 11/21/20 21:00 11/21/20 21:25 Loratadine 10 Mg Tab PO 10 mg HS SUZANNA Administration Metformin HCl 500 mg 11/18/20 08:00 11/21/20 16:37 Metformin 500 Mg Tab PO 500 mg BID-WM SUZANNA Administration Multivitamins 1 tab 11/17/20 09:00 11/21/20 08:31 Multivit, Therapeutic 1 Tab PO 1 tab DAILY SUZANNA Administration Pantoprazole Sodium 40 mg 11/17/20 21:00 11/21/20 21:25 Pantoprazole 40 Mg Tab PO 40 mg HS SUZANNA Administration Zinc Sulfate 220 mg 11/16/20 09:00 11/21/20 08:31 Zinc Sulfate 220 Mg Cap PO 220 mg DAILY SUZANNA Administration Hospitalist Exam Vitals: Vital Signs (12 hours) Temp Pulse Resp BP Pulse Ox 11/21/20 20:00 98.3 F 84 18 117/68 91 L 11/21/20 16:25 98.2 F 77 18 108/64 94 L Weight Weight 209 lb 7.04 oz General Appearance: awake alert Respiratory: tachypneic Musculoskeletal: generalized weakness Psychiatric: normal affect, A&O x 3 Hosp A/P (1) Acute respiratory failure with hypoxia Code(s): J96.01 - ACUTE RESPIRATORY FAILURE WITH HYPOXIA Status: Acute (2) Pneumonia due to COVID-19 virus Code(s): U07.1 - COVID-19; J12.82 - PNEUMONIA DUE TO CORONAVIRUS DISEASE 2018 Status: Acute (3) Severe sepsis Code(s): A41.9 - SEPSIS, UNSPECIFIED ORGANISM; R65.20 - SEVERE SEPSIS WITHOUT SEPTIC SHOCK Status: Suspected (4) Diabetes mellitus, type II Status: Chronic Qualifiers: Chronic kidney disease stage: stage 2 (mild) (5) Obesity (BMI 30-39.9) Code(s): E66.9 - OBESITY, UNSPECIFIED Status: Chronic (6) Hypertension Code(s): I10 - ESSENTIAL (PRIMARY) HYPERTENSION Status: Chronic - Plan O2 requirement slowly improving. Patient now on 3.5 L nasal cannula. With mild exertion O2 saturation dropped to 83 percent per ID. Monitor inflammatory markers. Continue sliding scale. Completed Remdesivir. Continue dexamethasone. Continue Lovenox for DVT prophylaxis. Add doxycycline and Dulera. AM labs. 2/3 Wean O2 as tolerated. Check inflammatory markers in a.m. Last dose of Remdesivir today. Continue bronchodilators, metformin, sliding scale as well as Lovenox. Continue PPIs and other medications as above. DC planning once on 2 L oxygen nasal cannula. 2/2 Remains on 5 L nasal cannula. Continue Remdesivirday 4. Continue bronchodilators. Continue Lovenox along with dexamethasone, metformin and other medications as above. Continue sliding-scale. Monitor inflammatory markers. 11/18 Continue O2 supplementation. Recheck CRP and D-dimer in a.m. Continue remde sivir with Decadron. Continue bronchodilators. Wean O2 as tolerated. Continue Metformin with sliding scale. 11/17 Patient is requiring 5 L O2 nasal cannula. Infectious disease input appreciated. Antibiotics discontinued. Will monitor d-dimer and CRP every other day. Continue supportive care. Continue bronchodilators with Remdesivir and Decadron. Continue COVID 19 isolation. Plan discussed with the patient. Continue Lovenox for DVT prophylaxis.
[2020-11-22] MEDS: Acetaminophen 325 MG TAB PO PRN (00:03)
[2020-11-22] MEDS: Guaifenesin DM 100-10/5 ML UDCUP PO PRN ×4 (00:03→21:11)
[2020-11-22] MEDS: Albuterol 200 PUFF (6.7GM INHALER) INH SCH ×6 (03:09→23:24)
[2020-11-22] MEDS: Mometasone 200 MCG/Formoterol 5 MCG 120 PUFF INHALER INH SCH ×2 (05:21→18:01)
[2020-11-22 06:17] LABS: Anion Gap 14 mmol/L (10-20); BUN (Urea Nitrogen) 22 mg/dL (8.4-25.7); Calc. Creatinine Clearance 99 mL/min (70-130); Carbon Dioxide 25 mmol/L (22-29); Chloride 102 mmol/L (98-107); Glucose 175 mg/dL (70-105); Potassium 5.6 mmol/L (3.5-5.1); Sodium 135 mmol/L (136-145)
[2020-11-22 06:42] LABS: Band 5 % (5-11); Hemoglobin 12.7 g/dL (14.0-18.0); Lymphocytes 1 % (21-51); MDiff Complete? YES; Mean Corpuscular HGB CONC 32.7 g/dL (32.0-36.0); Mean Corpuscular Hemoglobin 29.1 pg (27.0-31.0); Mean Platelet Volume 7.7 fL (7.4-10.4); Monocytes 4 % (0-10); Neutrophil 90 % (42-75); Platelet Count 462 thou/uL (130-400); Platelet Morphology Comment Appears Increased; RBC Distribution Width 12.4 % (11.5-14.5); Red Blood Cell (RBC) Count 4.38 mill/uL (4.70-6.10); White Blood Cell (WBC) Count 15.7 thou/uL (4.8-10.8)
[2020-11-22] MEDS: Enoxaparin Sodium 40 MG/0.4 ML SYRINGE SC SCH ×2 (08:41→20:38)
[2020-11-22] MEDS: Aspirin Chewable 81 MG TAB PO SCH (08:42)
[2020-11-22] MEDS: Atorvastatin Calcium 10 MG TAB PO SCH (08:42)
[2020-11-22] MEDS: Doxycycline 100 MG CAP PO SCH ×2 (08:42→20:38)
[2020-11-22] MEDS: Ascorbic Acid 500 mg Chewable Tablet PO SCH (08:42)
[2020-11-22] MEDS: Zinc Sulfate 220 MG CAP PO SCH (08:42)
[2020-11-22] MEDS: Cholecalciferol 1,000 UNITS (25 MCG) TAB PO SCH (08:42)
[2020-11-22] MEDS: Multivit, Therapeutic 1 TAB PO SCH (08:42)
[2020-11-22] MEDS: metFORMIN 500 MG TAB PO SCH ×2 (08:43→16:54)
--- NOTE | 2020-11-22 08:45 | PQF ---
CLINICAL DOCUMENTATION CLARIFICATION FORM: Dear Dr. Cain Petersen Date: 11/22/20 Please exercise your independent, professional judgment in responding to the clarification form. Clinical indicators are provided on the bottom of this form for your review. Please check appropriate box(es) to clarify if the following diagnosis has been ruled in or ruled out: Severe Sepsis, unspecified, without septic shock, Suspected [ x ] Ruled in diagnosis [ x ] Continue to treat [ ] Resolved [ ] Ruled out diagnosis [ ] Improving [ ] Cannot rule out diagnosis [ ] Other diagnosis [ ] Unable to determine In addition, please specify: Present on Admission (POA): [x ] Yes [ ] No [ ] Unable to determine For continuity of documentation, please document condition throughout progress notes and discharge summary. Thank You. To be completed by CDI/Coding staff for physician review: CLINICAL INDICATORS - SIGNS / SYMPTOMS / LABS / RESULTS AND LOCATION IN MR Severe sepsis, unspecified, without septic shock, Suspected (PN 11/17 - present) WBC: 17.3, 11.8, 13.9, 10.2, 15.7 (Lab EMR 11/17 - 11/22) Neutrophils: 87%, 81%, 79%, 90% (Lab EMR 11/17 - 11/22) CRP: 8.40, 12.85, 15.45 (Lab EMR 11/17, 2/, 2/) RISK FACTORS / RESULTS AND LOCATION IN MR Pneumonia d/t COVID 19 (PN 11/17 - present) Acute respiratory failure w/hypoxia (PN 10/20 - present) TREATMENTS / RESULTS AND LOCATION IN MR Infectious Disease consult (Physician order EMR, 11/16) Supplemental oxygen (Physician order EMR, 11/16) Thank you! CDS Signature: Annamarie Feng RN, BSN Phone #: [phone] Date: 11/22/20 This is a permanent part of the Medical Record [facility]
[2020-11-22 09:58] LABS: Anion Gap 16 mmol/L (10-20); BUN (Urea Nitrogen) 23 mg/dL (8.4-25.7); Calc. Creatinine Clearance 106 mL/min (70-130); Calcium 8.9 mg/dL (7.8-10.44); Carbon Dioxide 23 mmol/L (22-29); Chloride 101 mmol/L (98-107); Glucose 196 mg/dL (70-105); Potassium 4.7 mmol/L (3.5-5.1); Sodium 135 mmol/L (136-145)
[2020-11-22] MEDS: HumaLOG 300 UNITS/3 ML VIAL SC PRN (12:14)
[2020-11-22] MEDS: Dexamethasone 4 mg/ml Vial SLOW IVP SCH (20:38)
[2020-11-22] MEDS: Loratadine 10 MG TAB PO SCH (20:39)
--- NOTE | 2020-11-22 23:10 | PDOC.HOSPP ---
- Subjective Encounter Date: 11/22/20 Encounter Time: 11:00 Subjective: Patient seen and examined for respiratory failure/COVID-19 pneumonia. Symptomatically improving. Mild dry cough. Short of breath on exertion. - Objective Vital Signs & Weight: Vital Signs (12 hours) Temp Pulse Resp BP Pulse Ox 11/22/20 21:32 93 L 11/22/20 20:00 98.5 F 88 18 96/54 L 93 L 11/22/20 16:40 98.6 F 77 18 125/73 92 L 11/22/20 11:43 98.2 F 92 18 124/75 90 L Weight Weight 209 lb 7.04 oz I&O: 11/21/20 11/22/20 11/23/20 06:59 06:59 06:59 Intake Total 570 Output Total 2850 Balance -2280 Result Diagrams: 11/23/20 05:53 11/23/20 05:53 Additional Labs: Accuchecks 11/22/20 11/22/20 11/22/20 20:35 16:42 05:13 POC Glucose 135 H 104 H 157 H 11/21/20 16:27 POC Glucose 146 H Abnormal Lab Results - Last 48 hrs 11/22/20 05:17: Sodium 135 L, Potassium 5.6 H 11/22/20 05:17: WBC 15.7 H, RBC 4.38 L, Hgb 12.7 L, Hct 38.9 L, Plt Count 462 H, Neutrophils % (Manual) 90 H, Lymphocytes % (Manual) 1 L, Plt Morphology Comment Appears Increased H 11/22/20 09:31: Sodium 135 L Hospitalist ROS - Review of Systems Cardiovascular: denies: chest pain, palpitations, orthopnea, paroxysmal noc. dyspnea, edema, light headedness, other Gastrointestinal: denies: nausea, vomiting, abdominal pain, diarrhea, constipation, melena, hematochezia, other - Medication Medications: Active Medications Generic Name Dose Route Start Last Admin Trade Name Freq PRN Reason Stop Dose Admin Acetaminophen 650 mg 11/16/20 02:34 11/22/20 00:03 Acetaminophen 325 Mg Tab PO 650 mg Q4H PRN Administration Headache/Fever/Mild Pain (1-3) Albuterol Sulfate 2 puff 11/16/20 14:30 11/22/20 18:01 Albuterol 200 Puff (6.7gm Inhaler) INH 2 puff [id number] SUZANNA Administration Ascorbic Acid 500 mg 11/16/20 09:00 11/22/20 08:42 Ascorbic Acid 500 Mg Chewable Tablet PO 500 mg DAILY SUZANNA Administration Aspirin 81 mg 11/16/20 09:00 11/22/20 08:42 Aspirin Chewable 81 Mg Tab PO 81 mg DAILY SUZANNA Administration Atorvastatin Calcium 10 mg 11/16/20 09:00 11/22/20 08:42 Atorvastatin Calcium 10 Mg Tab PO 10 mg DAILY SUZANNA Administration Cholecalciferol 2,000 units 11/16/20 09:00 11/22/20 08:42 Cholecalciferol 1,000 Units (25 Mcg) Tab PO 2,000 units DAILY SUZANNA Administration Dexamethasone 6 mg 11/16/20 21:00 11/22/20 20:38 Dexamethasone 4 Mg/Ml Vial SLOW IVP 6 mg HS SUZANNA Administration Doxycycline Hyclate 100 mg 11/22/20 09:00 11/22/20 20:38 Doxycycline 100 Mg Cap PO 100 mg BID SUZANNA Administration Enoxaparin Sodium 40 mg 11/16/20 21:00 11/22/20 20:38 Enoxaparin Sodium 40 Mg/0.4 Ml Syringe SC 40 mg 0900,2100 SUZANNA Administration Guaifenesin/Dextromethorphan 15 ml 11/16/20 02:34 11/22/20 21:11 Guaifenesin Dm 100-10/5 Ml Udcup PO 15 ml Q4H PRN Administration Cough Insulin Human Lispro 0 units 11/16/20 02:48 11/22/20 12:14 Humalog 300 Units/3 Ml Vial SC 2 units .MILD SLIDING SCALE PRN Administration Mild Correctional Scale Insulin Human Lispro 0 units 11/16/20 12:51 11/16/20 20:56 Humalog 300 Units/3 Ml Vial SC 2 unit .BEDTIME SLIDING SC PRN Administration Bedtime Correctional Scale Loratadine 10 mg 11/21/20 21:00 11/22/20 20:39 Loratadine 10 Mg Tab PO 10 mg HS SUZANNA Administration Metformin HCl 500 mg 11/18/20 08:00 11/22/20 16:54 Metformin 500 Mg Tab PO 500 mg BID-WM SUZANNA Administration Mometasone Furoate/Formoterol Fumar 2 puff 11/22/20 06:30 11/22/20 18:01 Mometasone 200 Mcg/Formoterol 5 Mcg 120 Puff Inhaler INH 2 puff BID-RT SUZANNA Administration Multivitamins 1 tab 11/17/20 09:00 11/22/20 08:42 Multivit, Therapeutic 1 Tab PO 1 tab DAILY SUZANNA Administration Pantoprazole Sodium 40 mg 11/17/20 21:00 11/22/20 20:38 Pantoprazole 40 Mg Tab PO 40 mg HS SUZANNA Administration Zinc Sulfate 220 mg 11/16/20 09:00 11/22/20 08:42 Zinc Sulfate 220 Mg Cap PO 220 mg DAILY SUZANNA Administration Hospitalist Exam Vitals: Vital Signs (12 hours) Temp Pulse Resp BP Pulse Ox 11/22/20 21:32 93 L 11/22/20 20:00 98.5 F 88 18 96/54 L 93 L 11/22/20 16:40 98.6 F 77 18 125/73 92 L 11/22/20 11:43 98.2 F 92 18 124/75 90 L Weight Weight 209 lb 7.04 oz General Appearance: awake alert Neck: supple, no JVD Heart: RRR, no gallops Respiratory: no wheezes, normal chest expansion, no tachypnea (At rest), rales, rhonchi Gastrointestinal: soft, no guarding, no rigidity Extremities: no cyanosis Neurological: no new deficit Psychiatric: A&O x 3 Hosp A/P (1) Acute respiratory failure with hypoxia Code(s): J96.01 - ACUTE RESPIRATORY FAILURE WITH HYPOXIA Status: Acute (2) Pneumonia due to COVID-19 virus Code(s): U07.1 - COVID-19; J12.82 - PNEUMONIA DUE TO CORONAVIRUS DISEASE 2019 Status: Acute (3) Severe sepsis Code(s): A41.9 - SEPSIS, UNSPECIFIED ORGANISM; R65.20 - SEVERE SEPSIS WITHOUT SEPTIC SHOCK Status: Suspected (4) Diabetes mellitus, type II Status: Chronic Qualifiers: Chronic kidney disease stage: stage 2 (mild) (5) Obesity (BMI 30-39.9) Code(s): E66.9 - OBESITY, UNSPECIFIED Status: Chronic (6) Hypertension Code(s): I10 - ESSENTIAL (PRIMARY) HYPERTENSION Status: Chronic - Plan Wean O2 as tolerated. Continue dexamethasone. Patient completed remdesivir. Continue Dulera and doxycycline. Continue bronchodilators. Continue Metformin with sliding scale. Continue DVT and GI prophylaxis. DC planning in 2 to 3 days if stable. Home O2 set up at discharge.
[2020-11-23] MEDS: Albuterol 200 PUFF (6.7GM INHALER) INH SCH ×6 (04:42→23:40)
[2020-11-23 06:06] LABS: #Lymphocytes 0.5 thou/uL (1.20-3.40); #Monocytes 0.5 thou/uL (0.11-0.59); #Neutrophils 11.8 thou/uL (1.40-6.50); %Basophils 0.2 % (0.0-1.0); %Eosinophils 0.1 % (0.0-10.0); %Lymphocytes 3.9 % (21.0-51.0); %Monocytes 3.7 % (0.0-10.0); %Neutrophils 92.1 % (42.0-75.0); Hemoglobin 12.5 g/dL (14.0-18.0); Mean Corpuscular HGB CONC 32.8 g/dL (32.0-36.0); Mean Corpuscular Hemoglobin 29.1 pg (27.0-31.0); Mean Corpuscular Volume 88.7 fL (78.0-98.0); Mean Platelet Volume 7.1 fL (7.4-10.4); Platelet Count 452 thou/uL (130-400); RBC Distribution Width 12.5 % (11.5-14.5); Red Blood Cell (RBC) Count 4.29 mill/uL (4.70-6.10); White Blood Cell (WBC) Count 12.9 thou/uL (4.8-10.8)
[2020-11-23 06:26] LABS: ALT (SGPT) 15 U/L (8-55); AST (SGOT) 17 U/L (5-34); Albumin 3.2 g/dL (3.5-5.0); Alkaline Phosphatase 91 U/L (40-110); Anion Gap 13 mmol/L (10-20); BUN (Urea Nitrogen) 19 mg/dL (8.4-25.7); Bilirubin, Total 0.7 mg/dL (0.2-1.2); CRP (Inflammatory) 5.86 mg/dL (= or < 0.5); Calc. Creatinine Clearance 120 mL/min (70-130); Calcium 8.9 mg/dL (7.8-10.44); Carbon Dioxide 24 mmol/L (22-29); Chloride 101 mmol/L (98-107); Globulin 3.2 g/dL (2.4-3.5); Glucose 155 mg/dL (70-105); Potassium 5.1 mmol/L (3.5-5.1); Protein, Total 6.4 g/dL (6.0-8.3); Sodium 133 mmol/L (136-145)
[2020-11-23] MEDS: Mometasone 200 MCG/Formoterol 5 MCG 120 PUFF INHALER INH SCH ×2 (07:02→17:37)
[2020-11-23] MEDS: Multivit, Therapeutic 1 TAB PO SCH (08:30)
[2020-11-23] MEDS: Ascorbic Acid 500 mg Chewable Tablet PO SCH (08:30)
[2020-11-23] MEDS: Doxycycline 100 MG CAP PO SCH ×2 (08:30→20:08)
[2020-11-23] MEDS: metFORMIN 500 MG TAB PO SCH ×2 (08:30→17:23)
[2020-11-23] MEDS: Zinc Sulfate 220 MG CAP PO SCH (08:30)
[2020-11-23] MEDS: Enoxaparin Sodium 40 MG/0.4 ML SYRINGE SC SCH ×2 (08:30→20:08)
[2020-11-23] MEDS: Aspirin Chewable 81 MG TAB PO SCH (08:30)
[2020-11-23] MEDS: Atorvastatin Calcium 10 MG TAB PO SCH (08:30)
[2020-11-23] MEDS: Cholecalciferol 1,000 UNITS (25 MCG) TAB PO SCH (08:30)
[2020-11-23] MEDS: Guaifenesin DM 100-10/5 ML UDCUP PO PRN ×4 (08:42→22:53)
[2020-11-23] MEDS: HumaLOG 300 UNITS/3 ML VIAL SC PRN (12:12)
--- NOTE | 2020-11-23 19:32 | PDOC.HOSPP ---
- Subjective Encounter Date: 11/23/20 Encounter Time: 14:30 Subjective: Patient seen and examined for respiratory failure due to COVID-19 pneumonia. Shortness of breath improving. Patient is able to ambulate in the room to some extent - Objective Vital Signs & Weight: Vital Signs (12 hours) Temp Pulse Resp BP Pulse Ox 11/23/20 16:15 98.2 F 80 20 105/62 94 L 11/23/20 12:00 97.7 F 78 22 H 133/68 95 11/23/20 08:30 95 11/23/20 08:27 97.7 F 91 20 107/64 95 Weight Weight 209 lb 7.04 oz I&O: 11/22/20 11/23/20 11/24/20 06:59 06:59 06:59 Intake Total 570 800 Output Total 2850 1580 Balance -2280 -1580 800 Result Diagrams: 11/23/20 05:53 11/23/20 05:53 Additional Labs: Accuchecks 11/23/20 11/23/20 11/23/20 16:06 11:11 04:32 POC Glucose 111 H 158 H 148 H 11/22/20 20:35 POC Glucose 135 H Hospitalist ROS - Review of Systems Cardiovascular: denies: chest pain, palpitations, orthopnea, paroxysmal noc. dyspnea, edema, light headedness, other Gastrointestinal: denies: nausea, vomiting, abdominal pain, diarrhea, constipation, melena, hematochezia, other - Medication Medications: Active Medications Generic Name Dose Route Start Last Admin Trade Name Freq PRN Reason Stop Dose Admin Acetaminophen 650 mg 11/16/20 02:34 11/22/20 00:03 Acetaminophen 325 Mg Tab PO 650 mg Q4H PRN Administration Headache/Fever/Mild Pain (1-3) Albuterol Sulfate 2 puff 11/16/20 14:30 11/23/20 17:37 Albuterol 200 Puff (6.7gm Inhaler) INH 2 puff [id number] SUZANNA Administration Ascorbic Acid 500 mg 11/16/20 09:00 11/23/20 08:30 Ascorbic Acid 500 Mg Chewable Tablet PO 500 mg DAILY SUZANNA Administration Aspirin 81 mg 11/16/20 09:00 11/23/20 08:30 Aspirin Chewable 81 Mg Tab PO 81 mg DAILY SUZANNA Administration Atorvastatin Calcium 10 mg 11/16/20 09:00 11/23/20 08:30 Atorvastatin Calcium 10 Mg Tab PO 10 mg DAILY SUZANNA Administration Cholecalciferol 2,000 units 11/16/20 09:00 11/23/20 08:30 Cholecalciferol 1,000 Units (25 Mcg) Tab PO 2,000 units DAILY SUZANNA Administration Dexamethasone 6 mg 11/16/20 21:00 11/22/20 20:38 Dexamethasone 4 Mg/Ml Vial SLOW IVP 6 mg HS SUZANNA Administration Doxycycline Hyclate 100 mg 11/22/20 09:00 11/23/20 08:30 Doxycycline 100 Mg Cap PO 100 mg BID SUZANNA Administration Enoxaparin Sodium 40 mg 11/16/20 21:00 11/23/20 08:30 Enoxaparin Sodium 40 Mg/0.4 Ml Syringe SC 40 mg 0900,2100 SUZANNA Administration Guaifenesin/Dextromethorphan 15 ml 11/16/20 02:34 11/23/20 18:22 Guaifenesin Dm 100-10/5 Ml Udcup PO 15 ml Q4H PRN Administration Cough Insulin Human Lispro 0 units 11/16/20 02:48 11/23/20 12:12 Humalog 300 Units/3 Ml Vial SC 2 units .MILD SLIDING SCALE PRN Administration Mild Correctional Scale Insulin Human Lispro 0 units 11/16/20 12:51 11/16/20 20:56 Humalog 300 Units/3 Ml Vial SC 2 unit .BEDTIME SLIDING SC PRN Administration Bedtime Correctional Scale Loratadine 10 mg 11/21/20 21:00 11/22/20 20:39 Loratadine 10 Mg Tab PO 10 mg HS SUZANNA Administration Metformin HCl 500 mg 11/18/20 08:00 11/23/20 17:23 Metformin 500 Mg Tab PO 500 mg BID-WM SUZANNA Administration Mometasone Furoate/Formoterol Fumar 2 puff 11/22/20 06:30 11/23/20 17:37 Mometasone 200 Mcg/Formoterol 5 Mcg 120 Puff Inhaler INH 2 puff BID-RT SUZANNA Administration Multivitamins 1 tab 11/17/20 09:00 11/23/20 08:30 Multivit, Therapeutic 1 Tab PO 1 tab DAILY SUZANNA Administration Pantoprazole Sodium 40 mg 11/17/20 21:00 11/22/20 20:38 Pantoprazole 40 Mg Tab PO 40 mg HS SUZANNA Administration Zinc Sulfate 220 mg 11/16/20 09:00 11/23/20 08:30 Zinc Sulfate 220 Mg Cap PO 220 mg DAILY SUZANNA Administration Hospitalist Exam Vitals: Vital Signs (12 hours) Temp Pulse Resp BP Pulse Ox 11/23/20 16:15 98.2 F 80 20 105/62 94 L 11/23/20 12:00 97.7 F 78 22 H 133/68 95 11/23/20 08:30 95 11/23/20 08:27 97.7 F 91 20 107/64 95 Weight Weight 209 lb 7.04 oz General Appearance: awake alert Heart: RRR, no gallops Respiratory: no wheezes, rales, rhonchi Gastrointestinal: soft, non-distended Extremities: no cyanosis Hosp A/P (1) Acute respiratory failure with hypoxia Code(s): J96.01 - ACUTE RESPIRATORY FAILURE WITH HYPOXIA Status: Acute (2) Pneumonia due to COVID-19 virus Code(s): U07.1 - COVID-19; J12.82 - PNEUMONIA DUE TO CORONAVIRUS DISEASE 2019 Status: Acute (3) Severe sepsis Code(s): A41.9 - SEPSIS, UNSPECIFIED ORGANISM; R65.20 - SEVERE SEPSIS WITHOUT SEPTIC SHOCK Status: Suspected (4) Diabetes mellitus, type II Status: Chronic Qualifiers: Chronic kidney disease stage: stage 2 (mild) (5) Obesity (BMI 30-39.9) Code(s): E66.9 - OBESITY, UNSPECIFIED Status: Chronic (6) Hypertension Code(s): I10 - ESSENTIAL (PRIMARY) HYPERTENSION Status: Chronic - Plan DVT proph w/lovenox, DVT proph w/SCDs Patient has completed remdesivir. Wean O2 as tolerated. Continue dexamethasone with bronchodilators. Continue Dulera and doxycycline. Continue bronchodilators. Continue Metformin with sliding scale. Continue DVT and GI prophylaxis. DC planning in 2 to 3 days if stable. Patient will require home oxygen at discharge
[2020-11-23] MEDS: Dexamethasone 4 mg/ml Vial SLOW IVP SCH (20:07)
[2020-11-23] MEDS: Loratadine 10 MG TAB PO SCH (20:08)
[2020-11-23] MEDS: Acetaminophen 325 MG TAB PO PRN (22:57)
[2020-11-24] MEDS: Albuterol 200 PUFF (6.7GM INHALER) INH SCH ×4 (02:33→15:00)
[2020-11-24] MEDS: Guaifenesin DM 100-10/5 ML UDCUP PO PRN ×2 (05:10→11:59)
[2020-11-24] MEDS: Mometasone 200 MCG/Formoterol 5 MCG 120 PUFF INHALER INH SCH (05:29)
[2020-11-24 06:55] LABS: #Basophils 0.1 thou/uL (0.0-0.2); #Eosinphils 0.1 thou/uL (0.0-0.7); #Lymphocytes 0.6 thou/uL (1.20-3.40); #Monocytes 0.5 thou/uL (0.11-0.59); %Basophils 0.5 % (0.0-1.0); %Eosinophils 0.4 % (0.0-10.0); %Lymphocytes 5.1 % (21.0-51.0); %Monocytes 3.9 % (0.0-10.0); %Neutrophils 90.2 % (42.0-75.0); Hemoglobin 11.8 g/dL (14.0-18.0); Mean Corpuscular HGB CONC 30.4 g/dL (32.0-36.0); Mean Platelet Volume 7.1 fL (7.4-10.4); Platelet Count 492 thou/uL (130-400); RBC Distribution Width 12.5 % (11.5-14.5); Red Blood Cell (RBC) Count 4.37 mill/uL (4.70-6.10); White Blood Cell (WBC) Count 12.2 thou/uL (4.8-10.8)
[2020-11-24 07:15] LABS: Anion Gap 12 mmol/L (10-20); BUN (Urea Nitrogen) 16 mg/dL (8.4-25.7); Calc. Creatinine Clearance 124 mL/min (70-130); Carbon Dioxide 25 mmol/L (22-29); Chloride 102 mmol/L (98-107); Glucose 129 mg/dL (70-105); Sodium 134 mmol/L (136-145)
[2020-11-24] MEDS: Atorvastatin Calcium 10 MG TAB PO SCH (08:35)
[2020-11-24] MEDS: Doxycycline 100 MG CAP PO SCH (08:35)
[2020-11-24] MEDS: metFORMIN 500 MG TAB PO SCH ×2 (08:35→17:26)
[2020-11-24] MEDS: Enoxaparin Sodium 40 MG/0.4 ML SYRINGE SC SCH (08:36)
[2020-11-24] MEDS: Multivit, Therapeutic 1 TAB PO SCH (08:36)
[2020-11-24] MEDS: Ascorbic Acid 500 mg Chewable Tablet PO SCH (08:36)
[2020-11-24] MEDS: Cholecalciferol 1,000 UNITS (25 MCG) TAB PO SCH (08:36)
[2020-11-24] MEDS: Aspirin Chewable 81 MG TAB PO SCH (08:36)
[2020-11-24] MEDS: Zinc Sulfate 220 MG CAP PO SCH (08:36)
[2020-11-24 18:20] VITALS: BP 120/72; TEMP 98.8
--- NOTE | 2020-11-24 19:55 | PDOC.DS.DS ---
Provider Date of Admission: 11/16/20 00:18 Date of Discharge: 11/24/20 Admitting Provider: Jose Alex MD Primary Care Physician: BRANDYN Pastrana Course Hospital Course: Patient is a 60-year-old male with diabetes mellitus type 2, hypertension and obesity presented to the emergency room with fever, cough along with shortness of breath. He was diagnosed with COVID-19 1 week prior to admission. His initial O2 saturation was 88% on room air. Please referred to the history and physical for further details. The patient was admitted to the hospital with a diagnosis of acute hypoxic respiratory failure due to COVID-19 pneumonia along with severe sepsis. He was started on O2 supplementation along with dexamethasone, remdesivir as well as bronchodilators. Empiric antibiotics were also started. Symptomatically patient is significantly improved. His inflammatory markers are gradually improving. Patient is on 2 L oxygen on the day of discharge. He will require home oxygen prior to discharge. Due to hyperkalemia he was advised to hold RED inhibitor. Repeat labs after 1 week is recommended primary care physician advised to follow. He appears stable for discharge. Resuscitation Status: 11/16/20 02:33 Resuscitation Status Routine Resuscitation Status: FULL: Full Resuscitation Lab Results: 11/24/20 06:36 11/24/20 06:36 Abnormal Lab Results - Last 48 hrs 11/23/20 05:53: WBC 12.9 H, RBC 4.29 L, Hgb 12.5 L, Hct 38.0 L, Plt Count 452 H, MPV 7.1 L, Neutrophils % 92.1 H, Lymphocytes % 3.9 L, Neutrophils # 11.8 H, Lymphocytes # 0.5 L 11/23/20 05:53: Sodium 133 L, C-Reactive Protein 5.86 H, Albumin 3.2 L, Albumin/Globulin Ratio 1.0 L 11/23/20 05:53: Ferritin 411.36 H 11/23/20 05:53: D-Dimer 1.12 H 11/24/20 06:36: Sodium 134 L 11/24/20 06:36: WBC 12.2 H, RBC 4.37 L, Hgb 11.8 L, Hct 38.8 L, MCHC 30.4 L, Plt Count 492 H, MPV 7.1 L, Neutrophils % 90.2 H, Lymphocytes % 5.1 L, Neutrophils # 11.0 H, Lymphocytes # 0.6 L Vitals: Vital Signs (12 hours) Temp Pulse Resp BP BP Pulse Ox 11/24/20 18:20 98.8 F 93 18 120/72 98 11/24/20 12:00 97.9 F 78 18 103/64 98 11/24/20 08:00 98.0 F 83 20 109/70 92 L Weight Weight 209 lb 7.04 oz Physical Exam: The patient was seen and examined on the day of discharge. General Appearance: awake alert Neck: supple, no JVD Respiratory: no wheezes, rales, rhonchi Cardiovascular: RRR, no gallops Gastrointestinal: soft, non-distended, normal bowel sounds Extremities: no cyanosis Neurological: no new deficit Problem (1) Acute respiratory failure with hypoxia Code(s): J96.01 - ACUTE RESPIRATORY FAILURE WITH HYPOXIA Status: Acute (2) Pneumonia due to COVID-19 virus Code(s): U07.1 - COVID-19; J12.82 - PNEUMONIA DUE TO CORONAVIRUS DISEASE 2019 Status: Acute (3) Severe sepsis Code(s): A41.9 - SEPSIS, UNSPECIFIED ORGANISM; R65.20 - SEVERE SEPSIS WITHOUT SEPTIC SHOCK Status: Suspected (4) Diabetes mellitus, type II Status: Chronic Qualifiers: Chronic kidney disease stage: stage 2 (mild) (5) Obesity (BMI 30-39.9) Code(s): E66.9 - OBESITY, UNSPECIFIED Status: Chronic (6) Hypertension Code(s): I10 - ESSENTIAL (PRIMARY) HYPERTENSION Status: Chronic Plan Prescriptions: Dexamethasone 6 mg PO ASDIR #7 tablet Pantoprazole [Protonix] 40 mg PO HS #30 tab Albuterol Sulfate HFA (OR) [Proventil Hfa (or)] 2 puff INH Q4H #1 inh Doxycycline [Vibramycin] 100 mg PO BID #10 cap Ascorbic Acid [Vitamin C] 1,000 mg PO DAILY #14 tablet Zinc Sulfate 220 mg PO DAILY #14 cap Home Medications: Medication Instructions Recorded Confirmed Type Aspirin 81 mg PO DAILY 11/16/20 11/16/20 History Atorvastatin Calcium 10 mg PO DAILY 11/16/20 11/16/20 History metFORMIN [Glucophage] 500 mg PO DAILY 11/16/20 11/16/20 History Albuterol Sulfate HFA (OR) 2 puff INH Q4H #1 inh 11/24/20 Rx [Proventil Hfa (or)] Ascorbic Acid [Vitamin C] 1,000 mg PO DAILY #14 tablet 11/24/20 Rx Dexamethasone 6 mg PO ASDIR #7 tablet 11/24/20 Rx Doxycycline [Vibramycin] 100 mg PO BID #10 cap 11/24/20 Rx Multivit, Therapeutic [Theragran] 1 tab PO DAILY tab 11/24/20 Rx Pantoprazole [Protonix] 40 mg PO HS #30 tab 11/24/20 Rx Zinc Sulfate 220 mg PO DAILY #14 cap 11/24/20 Rx Allergies: No Known Allergies Allergy (Unverified 11/16/20 01:31) Discharge Instructions:: BMP after 1 week - PCP to arrange/follow YOUR PRESCRIPTIONS WERE SENT TO: [facility] [address] [place] [id number] Referrals: Meryl Pink PA [Primary Care Provider] - 3 Days John Stone MD [Active] - 7 Days Disposition: HOME Quality CORE MEASURES:: N/A
== END 2020-11-24 18:46 | disposition home or self-care (01) | DRG 871 ==
LOC: ERS 23:11 → T4-B 11-16 00:18
PROVIDERS: ADMIT Internal Medicine; ATTEND Internal Medicine
PROC: 8E0ZXY6 Isolation (ICD-10-PCS; principal; 2020-11-16)
PROC: XW033E5 Introduction of Remdesivir Anti-infective into Peripheral Vein, Percutaneous Approach, New Technology Group 5 (ICD-10-PCS; 2020-11-16)
DX: A41.89 Other specified sepsis (principal); U07.1 COVID-19; J96.01 Acute respiratory failure with hypoxia; J12.82 Pneumonia due to coronavirus disease 2019; R65.20 Severe sepsis without septic shock; E11.65 Type 2 diabetes mellitus with hyperglycemia; E66.9 Obesity, unspecified; E78.5 Hyperlipidemia, unspecified; N18.2 Chronic kidney disease, stage 2 (mild); E11.22 Type 2 diabetes mellitus with diabetic chronic kidney disease; I12.9 Hypertensive chronic kidney disease with stage 1 through stage 4 chronic kidney disease, or unspecified chronic kidney disease; Z79.84 Long term (current) use of oral hypoglycemic drugs; Z79.82 Long term (current) use of aspirin; Z79.899 Other long term (current) drug therapy; Z68.34 Body mass index [BMI] 34.0-34.9, adult; E87.5 Hyperkalemia
CPT/HCPCS: 36415; 36416; 80048; 80053; 80076; 82728; 83735; 85025; 85379; 86140; J1100; J1650; J1815; J7050